=== PATIENT | female | born 1970 | race Caucasian/White ===

== ENCOUNTER 2017-08-16 08:09 | Day surgery (SDC) | payer OTHER, SELFPAY ==
[2017-08-16 08:36] LABS: Internal QC Validated? YES +Cl - CLEAR BKGD; Pregnancy, Urine Negative Negative
[2017-08-16 08:56] LABS: Hematocrit 34.8 % (37-47); Hemoglobin 11.2 g/dl (12.0-15.0); Mean Corp Hgb Conc 32.2 g/gl (32-36); Mean Corpuscular Hgb 27.3 pg (27.0-32.0); Mean Corpuscular Volume 84.9 fL (81-99); Mean Platelet Vol. 9.1 fl (6.2-12.0); Platelet Count 253 K/mm3 (150-450); RBC Distribution Width CV 14.8 % (11.6-14.6); RBC Distribution Width SD 46.3 fl (35.1-43.9); White Blood Count 5.8 K/mm3 (4.4-11.0)
[2017-08-16 08:57] LABS: Scan Indicated on CBC? Y/N NO
[2017-08-16 09:01] VITALS: BP 119/81; PULSE 74; RESP 16; TEMP 36.3; O2SAT 100; BMI 40.8
--- NOTE | 2017-08-16 09:45 | EMB_PTH ---
PATIENT: RODERICK HONG LOC: [facility] [place] U#:[id number] AGE/SX: 47/F ROOM: RE08/16/[address]: Dr. Symone Valle MD : [id number] BED: DIS: 08/16/2017 SPEC #: [id number] RECD: 08/16/17 11:36 STATUS: GEORGI LALO #: [id number] KESHAWN: 08/16/17 09:[address]: Symone Valle DEPT: SURGICAL PATHOLOGY RECD BY: Collin Bautista ENTERED: 08/16/17 13:20 SP TYPE: ENDOM BX/C MELVIN DR: Out of Town Doctor Tissues: Endometrium, NOS Procedures: Surgery Specimen Level IV HEADER OPERATION: Hysteroscopy, D & C, Beverley PRE-OP DIAGNOSIS: Menorrhagia TISSUE SUBMITTED: Endometrial curettings MICROSCOPIC DIAGNOSIS Endometrium, curettings: Secretory endometrium. Rare fragments of benign superficial endocervix and ectocervix. AM:pablo 08/17/17 MICROSCOPIC DESCRIPTION Slides are reviewed. GROSS DESCRIPTION Received in fixative is one container labeled with the patient's name and designated endometrial curettings. The specimen consists of multiple irregular fragments of pink-red soft tissue that in aggregate measure 3 x 2.5 x 0.3 cm. The specimen is totally submitted in one cassette. / SJ:pablo 08/16/17 TC:5 CPT: 66335
--- NOTE | 2017-08-16 09:52 | PCM.DC.D&C ---
Discharge Diet: No Restrictions Discharge Activity: Return to Normal Activity, May Shower, May Take a Tub Bath - in 2 weeks. Call your doctor if your incision/area has: Sudden Increased Bleeding, Increased Pain/ Swelling Call your doctor if you observe: Fever of 101 or Higher Additional Instructions: Nothing in your vagina for 3 weeks. Expect some vaginal discharge and bleeding. Allergies/Adverse Reactions: Allergies acetaminophen [From Percocet] Adverse Reaction (Verified 08/09/17 15:15) Nausea codeine [From Tylenol-Codeine #3] Adverse Reaction (Verified 08/09/17 15:15) Nausea hydrocodone [From Vicodin] Adverse Reaction (Verified 08/09/17 15:15) Nausea oxycodone [From Percocet] Adverse Reaction (Verified 08/09/17 15:15) Nausea Medications to take at Discharge Aspirin E.C. [Ecotrin] 81 mg PO DAILY@0800 06/21/17 Cholecalciferol (VIT D3) [Vitamin D3] 1,000 unit PO DAILY 06/21/17 Ferrous Sulfate [Iron] 325 mg PO DAILY 06/21/17 Losartan Potassium [Cozaar] 50 mg PO DAILY 06/21/17 Primary Care Physician: Jessica Colin,Out of [Primary Care Provider] - Please Follow Up With: Symone Valle MD - [phone] When: 2-4 weeks or as needed
[2017-08-16 10:15] VITALS: BP 116/78; BP 119/81; PULSE 76; RESP 16; TEMP 36.1; O2SAT 100
--- NOTE | 2017-08-16 10:17 | OP.PCM_ITS ---
Report of Operation Date of Procedure: 08/16/17 Pre-Operative Diagnosis: Menorrhagia Post-Operative Diagnosis: Same Surgery/Procedure Performed:: Hysteroscopy D&C with Beverley endometrial ablation Description of Surgical Findings:: Normal-appearing cervix, normal endometrium that was lush, no definitive polyps or fibroids. Both tubal ostia were identified executive administrative asst: blanche pryor ms3 Type of Anesthesia:: MAC Special Medications: none Specimen's removed: Endometrial curettings Drains: None Estimated Blood Loss (mL): 5cc Fluids Replaced: 600 cc LR Description of Procedure: The patient was taken to the OR where she was prepped and draped in dorsal lithotomy position. The weighted speculum was placed in the vagina and the anterior lip of the cervix was grasped with a single-tooth tenaculum. The cervix was dilated serially with Hegar dilators. The 5mm hysteroscope was placed into the uterine cavity and the above findings were noted. Bilateral tubal ostia were identified. The uterus sounded to 9.5cm and the cervical length was 3.5cm. The endometrial cavity length was 6 cm. The hysteroscope was removed. A gentle sharp curettage was done of the uterine cavity. The specimen was handed off and sent to pathology. The Beverley device was set to 6 cm. The instrument was then seated into the endometrial cavity and the indicator was in the green. The cervical seal balloon was inflated and the uterine integrity test was passed. The ablation procedure was initiated and completed without interruption. During the ablation procedure gentle traction was held on the tenaculum and the Beverley device was held up against the uterine fundus. When the ablation procedure was completed the Beverley was removed. The tenaculum was removed and the tenaculum site was noted to be hemostatic. All sponge and needle counts were correct. A vaginal sweep was performed by me. The patient was awakened and taken to the recovery room in stable condition. Hysteroscopic ins: 200 cc normal saline Hysteroscopic outs: 150 cc Grafts/Implants Used: None - Complications None - Admit VTE Documentation VTE Present on Admission: No VTE Mechan Device Prophylaxis: SCD's VTE Pharm Prophylaxis ordered?: No Reason prophylaxis not ordered:: Procedure Not Indicated
[2017-08-16 10:20] VITALS: BP 111/71; BP 119/81; PULSE 74; RESP 16; O2SAT 100
[2017-08-16 10:25] VITALS: BP 101/68; BP 119/81; PULSE 77; RESP 16; O2SAT 100
[2017-08-16 10:30] VITALS: BP 119/81; BP 120/80; PULSE 64; RESP 14; TEMP 36.1; O2SAT 100
[2017-08-16 11:13] VITALS: BP 119/81
== END 2017-08-16 11:09 | disposition home or self-care (01) ==
LOC: SDC 08:11 → AC 08:14
PROVIDERS: Anesthesiology; Visit Provider Obstetrics & Gynecology
PROC: 0U5B8ZZ Destruction of Endometrium, Via Natural or Artificial Opening Endoscopic (ICD-10-PCS; CPT 58558; principal; 2017-08-16 09:30)
DX: N85.8 Other specified noninflammatory disorders of uterus (principal); D26.0 Other benign neoplasm of cervix uteri; N92.0 Excessive and frequent menstruation with regular cycle; I10 Essential (primary) hypertension; D64.9 Anemia, unspecified; K21.9 Gastro-esophageal reflux disease without esophagitis; E66.01 Morbid (severe) obesity due to excess calories; Z68.41 Body mass index [BMI] 40.0-44.9, adult; Z98.51 Tubal ligation status; Z79.82 Long term (current) use of aspirin; Z79.899 Other long term (current) drug therapy
CPT/HCPCS: 00952; 58563; 81025; 85027; 88305; J7120